=== PATIENT | female | born 1990 | race Two or more races ===

== ENCOUNTER 2016-11-14 16:07 | Observation (INO) | payer BC, OTHER ==
[2016-11-14 16:44] LABS: COLOR PALE YELLOW; LEUKOCYTE ESTERASE,URINE NEGATIVE (NEGATIVE); NITRITE,URINE NEGATIVE (NEGATIVE)
--- NOTE | 2016-11-14 17:10 | EDPHY ---
H & P Stated Complaint: R flank pain and dysuria x 1 day HPI/ROS: HPI CHIEF COMPLAINT: Right flank pain, dysuria HISTORY OF PRESENT ILLNESS: This patient 26-year-old female, significant past medical history for hysterectomy and ureteral surgery on the right, she presents to the emergency room with right CVA pain and dysuria. Patient thinks that she may have a urinary tract infection with a kidney infection. She endorses nausea 1 time last night no fever, she does endorse 1 episode of nonbilious nonbloody vomiting. No diarrhea. She denies abdominal pain specifically denies right lower quadrant pain. She tells me her pain is right-sided stabbing /10. Nonradiating. She denies chest pain or shortness of breath or fever. Past Medical History: Denies significant medical history Past Surgical History: hysterectomy, right ureter repair Social History: Denies use of drugs alcohol tobacco Family History: Noncontributory ROS REVIEW OF SYSTEMS: A comprehensive 10 point review of systems is otherwise negative aside from elements mentioned in the history of present illness. Exam Constitutional triage nursing summary reviewed, vital signs reviewed, awake/ alert. Eyes normal conjunctivae and sclera, EOMI, PERRLA. HENT normal inspection, atraumatic, moist mucus membranes, no epistaxis, neck supple/ no meningismus, no raccoon eyes. Respiratory clear to auscultation bilaterally, normal breath sounds, no respiratory distress, no wheezing. Cardiovascular rate normal, regular rhythm, no murmur, no edema, distal pulses normal. Gastrointestinal soft, non-tender, no rebound, no guarding, normal bowel sounds, no distension, no pulsatile mass. Genitourinary tender palpation right CVA, abdomen soft Musculoskeletal no midline vertebral tenderness, full range of motion, no calf swelling, no tenderness of extremities, no meningismus, good pulses, neurovascularly intact. Skin pink, warm, & dry, no rash, skin atraumatic. Neurologic awake, alert and oriented x 3, AAOx3, moves all 4 extremities equally, motor intact, sensory intact, CN II-XII intact, normal cerebellar, normal vision, normal speech. Psychiatric normal mood/affect. Heme/Lymph/Immune no lymphadenopathy. Differential Diagnosis: includes but is not limited to in a particular, UTI, pyelonephritis, kidney stone, hydroureter, hydronephrosis, perinephric abscess Medical Decision Making: this patient had an IV established obtain blood work, urinalysis, patient had a CT scan abdomen pelvis without IV contrast evaluate for sharp stabbing right flank pain possible kidney stone. She will be hydrated normal saline, IV Dilaudid for pain control. Zofran for nausea. Re-evaluation: CT scan of the abdomen and pelvis without IV contrast for right flank pain . The results of the study are negative for anything acute The study was read by Dr. Hester. I viewed the images myself on the PACS system. 1755: re-evaluation at this time patient does have right upper quadrant pain that radiates directly to her right back on her CT scan it was noted that her gall bladder is full of gallstones. She did have nausea with 1 episode of vomiting while in the emergency room I will Re medicated with nausea medicine she will have an ultrasound of her right upper quadrant to rule out acute cholecystitis biliary colic or impacted stone. Ultrasound of the right upper quadrant The results of the study are shows extensive gallstones, the CBD is dilated 5 mm no evidence of acute cholecystitis I discussed the results of this study with the radiologist Dr. Hester 1837: I re-evaluated this patient: At this time she still has right upper quadrant pain. Given that she has ongoing pain with nausea vomiting and a gallbladder full of gallstones I will consult surgery for admission. IV Invanz ordered patient made NPO. 185: spoke with Dr. Stahl with General surgery who plan on admitting this patient and removing her gallbladder. This time patient is hemodynamically stable I have updated her. She agrees for plan. IV Invanz ordered. Patient made NPO. Source: Patient - Personal History LMP (Females 10-55): Hysterectomy Current Tetanus Diphtheria and Acellular Pertussis (TDAP): Yes - Medical/Surgical History Hx Asthma: No Hx Chronic Respiratory Disease: No Hx Diabetes: No Hx Cardiac Disease: No Hx Renal Disease: No Hx Cirrhosis: No Hx Alcoholism: No Hx HIV/AIDS: No Hx Splenectomy or Spleen Trauma: No Other PMH: hyst in march 2015. stent late march or early april 2015 to drain R kidney - Social History Smoking Status: Never smoked Constitutional: Initial Vital Signs Temperature (C) 36.9 C 11/14/16 16:20 Heart Rate 88 11/14/16 16:20 Respiratory Rate 16 11/14/16 16:20 Blood Pressure 126/75 H 02/01/17 16:20 O2 Sat (%) 100 11/14/16 16:20 O2 Delivery Mode Room Air Allergies/Adverse Reactions: No Known Allergies Allergy (Verified 11/14/16 16:30) Home Medications: Medication Instructions Recorded NK [No Known Home Meds] 11/14/16 Medical Decision Making - Data Points Laboratory Results: Laboratory Results 11/14/16 17:04 11/14/16 17:04 11/14/16 11/14/16 17:04 16:35 WBC 8.33 10^3/uL (3.80-9.50) RBC 4.29 10^6/uL (4.18-5.33) Hgb 13.7 g/dL (12.6-16.3) Hct 38.4 % (38.0-47.0) MCV 89.5 fL (81.5-99.8) MCH 31.9 pg (27.9-34.1) MCHC 35.7 g/dL (32.4-36.7) RDW 11.9 % (11.5-15.2) Plt Count 330 10^3/uL (150-400) MPV 8.8 fL (8.7-11.7) Neut % (Auto) 51.1 % (39.3-74.2) Lymph % (Auto) 39.9 % (15.0-45.0) [place] % (Auto) 5.3 % (4.5-13.0) Eos % (Auto) 3.0 % (0.6-7.6) Baso % (Auto) 0.5 % (0.3-1.7) Nucleat RBC Rel Count 0.0 % (0.0-0.2) Absolute Neuts (auto) 4.26 10^3/uL (1.70-6.50) Absolute Lymphs (auto) 3.32 H 10^3/uL (1.00-3.00) Absolute Monos (auto) 0.44 10^3/uL (0.30-0.80) Absolute Eos (auto) 0.25 10^3/uL (0.03-0.40) Absolute Basos (auto) 0.04 10^3/uL (0.02-0.10) Absolute Nucleated RBC 0.00 10^3/uL (0-0.01) Immature Gran % 0.2 % (0.0-1.1) Immature Gran # 0.02 10^3/uL (0.00-0.10) Sodium 140 mEq/L (134-144) Potassium 3.8 mEq/L (3.5-5.2) Chloride 107 mEq/L (97-110) Carbon Dioxide 23 mEq/l (22-31) Anion Gap 10 mEq/L (8-16) BUN 9 mg/dL (7-23) Creatinine 0.5 L mg/dL (0.6-1.0) Estimated GFR > 60 Glucose 95 mg/dL (70-100) Calcium 8.5 mg/dL (8.5-10.4) Total Bilirubin 0.7 mg/dL (0.1-1.4) Conjugated Bilirubin 0.3 mg/dL (0.0-0.5) Unconjugated Bilirubin 0.4 mg/dL (0.0-1.1) AST 60 H IU/L (14-46) ALT 101 H IU/L (9-52) Alkaline Phosphatase 86 IU/L (38-126) Total Protein 7.7 g/dL (6.3-8.2) Albumin 3.9 g/dL (3.5-5.0) Lipase 79.0 IU/L (23-300) Urine Color PALE YELLOW Urine Appearance CLEAR Urine pH 6.0 (5.0-7.5) Ur Specific [place] 1.004 (1.002-1.030) Urine Protein NEGATIVE (NEGATIVE) Urine Ketones NEGATIVE (NEGATIVE) Urine Blood NEGATIVE (NEGATIVE) Urine Nitrate NEGATIVE (NEGATIVE) Urine Bilirubin NEGATIVE (NEGATIVE) Urine Urobilinogen NEGATIVE EU (0.2-1.0) Ur Leukocyte Esterase NEGATIVE (NEGATIVE) Ur Culture Indicated? NOT INDICATED (NI) Urine Glucose NEGATIVE (NEGATIVE) Medications Given: Discontinued Medications Hydromorphone HCl (Dilaudid) 1 mg IVP EDNOW ONE Stop: 11/14/16 17:15 Last Admin: 11/14/16 17:36 Dose: 1 mg Sodium Chloride (Ns) 1,000 mls @ 0 mls/hr IV ONCE ONE PRN Reason: Wide Open Stop: 11/14/16 17:15 Last Admin: 11/14/16 17:37 Dose: 1,000 mls Ondansetron HCl (Zofran) 4 mg IVP EDNOW ONE Stop: 11/14/16 17:15 Last Admin: 11/14/16 17:36 Dose: 4 mg Ondansetron HCl (Zofran) 4 mg IVP EDNOW ONE Stop: 11/14/16 17:56 Last Admin: 11/14/16 18:01 Dose: 4 mg Departure - Departure Disposition: [facility] ([place], [place])s Inpatient Acute Clinical Impression: Gallstones Condition: Fair Referrals: NONE *PRIMARY CARE P,. [Primary Care Provider] - As per Instructions
[2016-11-14] MEDS ORDERED: HYDROmorphONE/DILAUDID 1 MG/ML SYR IVP ONE ×2 (17:14→22:00)
[2016-11-14] MEDS ORDERED: ONDANSETRON 4 MG/2 ML VIAL IVP ONE ×2 (17:14→17:55)
[2016-11-14] MEDS ORDERED: NS 1,000 ML IV ONE (17:14)
[2016-11-14 17:23] LABS: % IMMATURE GRANULYOCYTES 0.2 % (0.0-1.1); ABSOLUTE IMMATURE GRANULOCYTES 0.02 10^3/uL (0.00-0.10); ADD DIFF? NO; ADD MORPH? NO; ADD SCAN? NO; ATYPICAL LYMPHOCYTE FLAG 10 (0-99); FRAGMENT RBC FLAG 0 (0-99); HEMATOCRIT 38.4 % (38.0-47.0); HEMOGLOBIN 13.7 g/dL (12.6-16.3); LEFT SHIFT FLG 0 (0-99); LIPEMIA HEMOLYSIS FLAG 90 (0-99); MEAN CELL HEMOGLOBIN 31.9 pg (27.9-34.1); MEAN CELL HEMOGLOBIN CONCENTR. 35.7 g/dL (32.4-36.7); MEAN CELL VOLUME 89.5 fL (81.5-99.8); MEAN PLATELET VOLUME 8.8 fL (8.7-11.7); PLATELET CLUMPS FLAG 30 (0-99); PLATELET COUNT 330 10^3/uL (150-400); RED BLOOD CELL COUNT 4.29 10^6/uL (4.18-5.33); RED CELL DISTRIBUTION WIDTH 11.9 % (11.5-15.2)
[2016-11-14 17:35] LABS: ALANINE AMINOTRANSFERASE 101 IU/L (9-52); ALBUMIN 3.9 g/dL (3.5-5.0); ALKALINE PHOSPHATASE 86 IU/L (38-126); ANION GAP 10 mEq/L (8-16); ASPARTATE AMINOTRANSFERASE 60 IU/L (14-46); BILIRUBIN,TOTAL 0.7 mg/dL (0.1-1.4); BILIRUBIN-CONJUGATED 0.3 mg/dL (0.0-0.5); BILIRUBIN-UNCONJUGATED 0.4 mg/dL (0.0-1.1); CALCIUM 8.5 mg/dL (8.5-10.4); CARBON DIOXIDE 23 mEq/l (22-31); CHLORIDE 107 mEq/L (97-110); CREATININE 0.5 mg/dL (0.6-1.0); GLOMERULAR FILTRATION RATE > 60; GLUCOSE 95 mg/dL (70-100); POTASSIUM 3.8 mEq/L (3.5-5.2); SODIUM 140 mEq/L (134-144); TOTAL PROTEIN 7.7 g/dL (6.3-8.2)
--- NOTE | 2016-11-14 18:04 | CT ---
CT Abdomen and Pelvis (Without Contrast) at 1740 hours History: Right flank pain. Previous right pyelonephritis. Comparison: CT October 2015. Technique: Spiral images were acquired from the upper abdomen through the pelvis without intravenous or oral contrast which limits the study. Dose reduction techniques were utilized. Findings: Abdomen: Bilateral kidneys demonstrate no nephrolithiasis or hydronephrosis. No pleural effusion. Hep atic steatosis. Cholelithiasis with several gallbladder calculi noted. No pericholecystic fluid. No s plenomegaly. No peripancreatic fluid. No aortic aneurysm. No bowel obstruction. No significant adenop athy. Limited due to lack of intravenous and oral contrast. Pelvis: No evidence of distal ureteral calculi, hydroureter or bladder calculi. Appendix appears nor mal without inflammatory changes. No adnexal masses. No diverticulitis. No significant free fluid. No significant adenopathy. Impression: 1. Cholelithiasis. Recommend ultrasound gallbladder. 2. No nephrolithiasis, hydronephrosis, or perinephric fluid. 3. No appendicitis or bowel obstruction. 4. Hepatic steatosis. Recommendation: Ultrasound abdomen limited. Attention: This CT examination is specifically designed to evaluate patients who are clinically susp ected of having acute obstructive uropathy. This examination does not use radiographic contrast, and as such, provides only a limited evaluation of the abdomen, pelvis and retroperitoneum. If there is further clinical suspicion for pathological conditions other than obstructive uropathy, a complete C T evaluation of the abdomen and pelvis utilizing intravenous, oral, and rectal contrast should be con sidered. Findings and recommendations discussed with Emergency Department physician, Dr. Walker Nance at 17 55 hour, today. Final report concurs with initial preliminary interpretation.
[2016-11-14] MEDS ORDERED: ERTAPENEM 1 GM in NS 100 ML IV ONE (18:42)
--- NOTE | 2016-11-14 18:43 | US ---
Ultrasound of the Abdomen Limited History: Right Abdominal pain. Comparison: None. Findings: Gallbladder: Gallbladder is completely opacified with multiple gallstones. Gallbladder wall not well visualized. Common bile duct is 5 mm in diameter which is borderline. Liver: Diffusely increased in echogenicity without definite focal solid lesions and measures 17 cm in length. Main portal vein is patent. Renal: Right kidney measures 10 x 5 x 6 cm without hydronephrosis. Pancreas: Partially obscured by bowel gas. Aorta: Visualized upper abdominal aorta demonstrates no an eurysm. Impression: 1. Cholelithiasis with gallbladder completely opacified with gallstones. 2. Borderline common bile duct is 5 mm. 3. Hepatomegaly and hepatic steatosis. Findings and recommendations discussed with Emergency Department physician, Dr. Walker Nance at 18 30 hour, today. Final report concurs with initial preliminary interpretation.
--- NOTE | 2016-11-14 20:55 | GHP ---
[f rep st] PREOP HISTORY AND PHYSICAL Amended report HPI: A 26-year-old female who is admitted at this time with right upper quadrant pain of 2 days duration, associated with nausea, mild amount of diarrhea, pain penetrating into her back. Ultrasound and CT scan revealed multiple gallstones. Her LFTs were slightly elevated. She is admitted at this time for laparoscopic cholecystectomy. She did eat a small amount of noodles earlier this afternoon, but has vomited since. She has had pain now for 2 days. PAST MEDICAL HISTORY: Past history is complicated with multiple problems. She has had a hysterectomy which was complicated by a ureter injury which was treated with laparoscopic repair. She has asthma for which she takes inhalers. She denies any cardiac issues. ALLERGIES: None. MEDICATIONS: None. REVIEW OF SYSTEMS: Otherwise negative on full review of systems. PHYSICAL EXAMINATION: GENERAL: Reveals an alert 26-year-old female, in no acute distress. HEAD/NECK: Exam is benign without icterus. CHEST: Clear. CARDIAC: Regular rhythm. ABDOMEN: Soft. She is slightly distended and she is tender in the right upper quadrant. There are no hernias. EXTREMITIES: Benign. Full pulses. IMPRESSION: Acute cholecystitis and cholelithiasis. PLAN: Laparoscopic cholecystectomy. Again, the risks and options have been fully discussed, and she wishes to proceed. DISPOSITION: Admit for laparoscopic cholecystectomy. /[id number]/MODL Add acc#, 11/15/16, tom ESCOBAR
[2016-11-14] MEDS ORDERED: HYDROmorphONE/DILAUDID 1 MG/ML SYR ONE (21:45)
[2016-11-14] MEDS ORDERED: BUPIVACAINE 0.5% 30 ML SDV ONE (22:32)
[2016-11-14] MEDS ORDERED: fentaNYL 250 MCG/5 ML INJ ONE (22:33)
[2016-11-14] MEDS ORDERED: PROPOFOL/EMULSION 500 MG/50 ML BOTTLE IV ONE (22:33)
[2016-11-14] MEDS ORDERED: HYDROmorphONE/DILAUDID 1 MG/ML SYR IVP PRN (22:36)
--- NOTE | 2016-11-14 22:39 | POSTOPPROG ---
[id number] 4d daliwhal Anesthesia: GET(General Endotracheal) Pre-op Diagnosis: acute cholecystitis Post-op Diagnosis: same Indication: pain Procedure: lap phillip Findings: large solid stone filling gb Inf/Abcess present in the surg proc area at time of surgery?: Yes Depth: Organ Space EBL: Minimal Complications: 0 Specimen(s): gallbladder
[2016-11-14] MEDS ORDERED: D5W 1/2 NS W/ 20 KCl/L 1,000 ML IV SCH (22:45)
[2016-11-15] MEDS ORDERED: SUGAMMADEX SODIUM 200 MG/2 ML VIAL IVP ONE (00:19)
[2016-11-15] MEDS ORDERED: fentaNYL 100 MCG/2 ML INJ ONE (01:16)
[2016-11-15] MEDS: OXYCODONE/APAP 5/325 TAB PO PRN ×3 (02:56→16:43)
[2016-11-15 04:56] LABS: % IMMATURE GRANULYOCYTES 0.5 % (0.0-1.1); ABSOLUTE IMMATURE GRANULOCYTES 0.07 10^3/uL (0.00-0.10); ADD DIFF? NO; ADD MORPH? NO; ADD SCAN? NO; ATYPICAL LYMPHOCYTE FLAG 0 (0-99); FRAGMENT RBC FLAG 0 (0-99); HEMATOCRIT 39.2 % (38.0-47.0); HEMOGLOBIN 13.8 g/dL (12.6-16.3); LEFT SHIFT FLG 0 (0-99); LIPEMIA HEMOLYSIS FLAG 90 (0-99); MEAN CELL HEMOGLOBIN 31.7 pg (27.9-34.1); MEAN CELL HEMOGLOBIN CONCENTR. 35.2 g/dL (32.4-36.7); MEAN CELL VOLUME 89.9 fL (81.5-99.8); PLATELET CLUMPS FLAG 0 (0-99); PLATELET COUNT 338 10^3/uL (150-400); RED BLOOD CELL COUNT 4.36 10^6/uL (4.18-5.33); RED CELL DISTRIBUTION WIDTH 11.9 % (11.5-15.2)
[2016-11-15 05:16] LABS: ALBUMIN 3.9 g/dL (3.5-5.0); BILIRUBIN,TOTAL 0.8 mg/dL (0.1-1.4); BILIRUBIN-CONJUGATED 0.3 mg/dL (0.0-0.5); BILIRUBIN-UNCONJUGATED 0.5 mg/dL (0.0-1.1); TOTAL PROTEIN 7.6 g/dL (6.3-8.2)
[2016-11-15] MEDS: KETOROLAC 15 MG/1 ML SDV IVP SCH ×4 (06:01→23:49)
[2016-11-15] MEDS: ERTAPENEM 1 GM in NS 100 ML IV SCH (08:31)
[2016-11-15] MEDS: ONDANSETRON 4 MG/2 ML VIAL IVP PRN ×2 (08:34→14:09)
--- NOTE | 2016-11-15 10:29 | SOAPPROG ---
SOAP Progress Note Assessment/Plan: Assessment: 26yo female s/p lap phillip tolerating clears, has not ambulated yet, pain well controlled PE no jaundice, comfortable alert Abdomen incisions clean/dry, soft to palpation Plan: advance diet, possible d/c later today, script for pain med placed in chart. D/ C plan filled out discussed f/u, wound care with pt and significant other. 11/15/16 10:27 Objective: Vital Signs Temp Pulse Resp BP Pulse Ox 36.6 C 92 16 122/79 H 99 11/15/16 08:00 11/15/16 08:00 11/15/16 08:00 11/15/16 08:00 11/15/16 08:00 Laboratory Results 11/15/16 04:44 11/14/16 11/15/16 11/16/16 05:59 05:59 05:59 Intake Total 2700 Output Total 2550 Balance 150 ICD10 Worksheet Patient Problems: Problems Problem Status Diagnosed Gallstones Acute Acute pyelonephritis Acute Right ureteral injury Acute Urinary tract infection Acute
--- NOTE | 2016-11-15 13:37 | GDS ---
[f rep st] DISCHARGE SUMMARY REASON FOR ADMISSION: Cholecystitis. OTHER PERTINENT DIAGNOSES: Asthma. HOSPITAL COURSE: The patient is a pleasant 26-year-old female, who came to the emergency department complaining of abdominal pain. She had an ultrasound and a CT scan which revealed multiple gallstone s. She underwent a laparoscopic cholecystectomy with Dr. Stahl late in the evening on 11/14/2016. S he is currently tolerating a regular diet, ambulating well, and will likely be discharged later today . A prescription for Percocet was given to the patient, Percocet 5/325, #10. It is okay for the patien t to shower over her Steri-Strips. No heavy lifting for 6 weeks. I discussed these recommendations with the patient and put them in written form in the discharge plan. I also discussed with the patient her elevated liver function tests, and we may want to recheck those at her followup visit in approximately 10 days in the office. While her bilirubin was normal, her A ST is 178, and her ALT is 192 on discharge. /[id number]/MODL
[2016-11-15 23:50] VITALS: TEMP 98.4
[2016-11-16] MEDS: KETOROLAC 15 MG/1 ML SDV IVP SCH (05:41)
[2016-11-16] MEDS: ERTAPENEM 1 GM in NS 100 ML IV SCH (08:00)
[2016-11-16 08:12] VITALS: BP 109/64; PULSE 81; RESP 18; O2SAT 96
== END 2016-11-16 12:18 | disposition home or self-care (01) ==
LOC: INTOOBSV 18:55 → F3E 20:34
PROVIDERS: ADMIT Surgery; ATTEND Surgery
PROC: 0FT44ZZ Resection of Gallbladder, Percutaneous Endoscopic Approach (ICD-10-PCS; principal; 2016-11-14 22:30)
DX: K80.10 Calculus of gallbladder with chronic cholecystitis without obstruction (principal); J45.909 Unspecified asthma, uncomplicated
CPT/HCPCS: 47562; 74176; 76705; 96361; 96365; 96375; 96376; 99285; G0378; J1170; J1335; J1885; J2405; J2704; J3010

== ENCOUNTER 2017-02-17 17:46 | Emergency (ER) | payer OTHER ==
[2017-02-17 17:51] VITALS: RESP 18
--- NOTE | 2017-02-17 18:18 | EDPHY ---
H & P Stated Complaint: dysuria and constipation Time Seen by Provider: 02/17/17 18:07 HPI/ROS: CHIEF COMPLAINT: Right flank pain dysuria HISTORY OF PRESENT ILLNESS: This is a 26-year-old female presenting to the emergency department complaining of right flank pain, right upper quadrant with intermittent dysuria onset yesterday. Patient has been able to tolerate p.o. intake no changes in activity. Patient was concerned because she has had previous surgery on her right ureter due to complications hysterectomy 1 year ago, and cholecystectomy. Denies any nausea vomiting fever chills. REVIEW OF SYSTEMS: Constitutional: No fever, no chills. Eyes: No discharge. ENT: No sore throat. Cardiovascular: No chest pain, no palpitations. Respiratory: No cough, no shortness of breath. Gastrointestinal: The right upper quadrant, suprapubic abdominal pain, no vomiting. Genitourinary: Dysuria Musculoskeletal: Right flank pain Skin: No rashes. Neurological: No headache. Source: Patient, Family - Personal History LMP (Females 10-55): Hysterectomy Current Tetanus/Diphtheria Vaccine: Yes - Medical/Surgical History Hx Asthma: No Hx Chronic Respiratory Disease: No Hx Diabetes: No Hx Cardiac Disease: No Hx Renal Disease: No Hx Cirrhosis: No Hx Alcoholism: No Hx HIV/AIDS: No Hx Splenectomy or Spleen Trauma: No Other PMH: hyst in march 2015. stent late march or early april 2015 to drain R kidney cholesectomy - Social History Smoking Status: Never smoked - Physical Exam Exam: General Appearance: Alert, no distress. Eyes: Pupils equal and round no pallor or injection. ENT, Mouth: Mucous membranes moist. Respiratory: There are no retractions, lungs are clear to auscultation. Cardiovascular: Regular rate and rhythm. Gastrointestinal: Abdomen is soft, nondistended, right upper quadrant and suprapubic tenderness on palpation, no masses, bowel sounds normal. Neurological: No focal deficits Skin: Warm and dry, no rashes. Musculoskeletal: Neck is supple nontender. right CVA tenderness on palpation Extremities: symmetrical, full range of motion. Psychiatric: Patient is oriented X 3, there is no agitation. Constitutional: Initial Vital Signs Temperature (C) 37.0 C 02/17/17 17:49 Heart Rate 98 02/17/17 17:49 Respiratory Rate 18 02/17/17 17:49 Blood Pressure 117/75 02/17/17 17:49 O2 Sat (%) 98 02/17/17 17:49 O2 Delivery Mode Room Air Allergies/Adverse Reactions: No Known Allergies Allergy (Verified 11/14/16 16:30) Medical Decision Making - Diagnostics Imaging Results: Imaging Impressions Abdomen/Pelvis Ultrasound 02/17/17 18:53 Impression: 1. Normal-appearing kidneys. No hydronephrosis. 2. Only a left-sided ureteral jet was identified during observation of the bladder with color flow imaging. Apparently, the right distal ureter was reimplanted in a different location on the bladder. Findings discussed with Lisa Schultz NP at 19:54 hour, 02/17/2017. Abdomen Ultrasound 02/17/17 20:10 Impression: 1. No evidence of choledocholithiasis. 2. Moderate hepatic steatosis. Findings discussed with Lisa Schultz NP at 20:43 hour, 02/17/2017. ED Course/Re-evaluation: Discussed the plan of care: CBC, BMP, UA. Reviewed old records. Renal ultrasound 1929: Discussed with Dr. Nielson recommending ultrasound for right upper quadrant to rule out any retained stone in the common bile duct. 2043: Spoke with Dr. Nielson no retained stones noted in the common bile duct, no hydronephrosis and kidneys. 2049: Discussed all results with patient and family. She does report feeling better, relief with Toradol. Recommended following up with her primary care provider this week. If at any point time symptoms worsen nausea vomiting abdominal pain fever chills return to the emergency department. Patient agreed with plan Differential Diagnosis: Other differential diagnosis considered but not limited to retained gallstone in common bile duct, renal colic, UTI, pyelonephritis and nephrolithiasis - Data Points Laboratory Results: Laboratory Results 02/17/17 18:10 02/17/17 18:10 02/17/17 02/17/17 02/17/17 18:10 18:10 18:10 WBC 11.28 10^3/uL H 10^3/uL (3.80-9.50) RBC 4.41 10^6/uL 10^6/uL (4.18-5.33) Hgb 13.2 g/dL g/dL (12.6-16.3) Hct 39.9 % % (38.0-47.0) MCV 90.5 fL fL (81.5-99.8) MCH 29.9 pg pg (27.9-34.1) MCHC 33.1 g/dL g/dL (32.4-36.7) RDW 12.1 % % (11.5-15.2) Plt Count 329 10^3/uL 10^3/uL (150-400) MPV 9.0 fL fL (8.7-11.7) Neut % (Auto) 63.1 % % (39.3-74.2) Lymph % (Auto) 29.3 % % (15.0-45.0) [place] % (Auto) 4.6 % % (4.5-13.0) Eos % (Auto) 2.2 % % (0.6-7.6) Baso % (Auto) 0.4 % % (0.3-1.7) Nucleat RBC Rel Count 0.0 % % (0.0-0.2) Absolute Neuts (auto) 7.12 10^3/uL H 10^3/uL (1.70-6.50) Absolute Lymphs (auto) 3.30 10^3/uL H 10^3/uL (1.00-3.00) Absolute Monos (auto) 0.52 10^3/uL 10^3/uL (0.30-0.80) Absolute Eos (auto) 0.25 10^3/uL 10^3/uL (0.03-0.40) Absolute Basos (auto) 0.05 10^3/uL 10^3/uL (0.02-0.10) Absolute Nucleated RBC 0.00 10^3/uL 10^3/uL (0-0.01) Immature Gran % 0.4 % % (0.0-1.1) Immature Gran # 0.04 10^3/uL 10^3/uL (0.00-0.10) Sodium 140 mEq/L mEq/L (134-144) Potassium 3.9 mEq/L mEq/L (3.5-5.2) Chloride 105 mEq/L mEq/L (97-110) Carbon Dioxide 25 mEq/l mEq/l (22-31) Anion Gap 10 mEq/L mEq/L (8-16) BUN 11 mg/dL mg/dL (7-23) Creatinine 0.9 mg/dL mg/dL (0.6-1.0) Estimated GFR > 60 Glucose 92 mg/dL mg/dL (70-100) Calcium 8.9 mg/dL mg/dL (8.5-10.4) Urine Color YELLOW Urine Appearance HAZY Urine pH 7.0 (5.0-7.5) Ur Specific [place] 1.027 (1.002-1.030) Urine Protein NEGATIVE (NEGATIVE) Urine Ketones NEGATIVE (NEGATIVE) Urine Blood NEGATIVE (NEGATIVE) Urine Nitrate NEGATIVE (NEGATIVE) Urine Bilirubin NEGATIVE (NEGATIVE) Urine Urobilinogen NEGATIVE EU EU (0.2-1.0) Ur Leukocyte Esterase NEGATIVE (NEGATIVE) Urine Glucose NEGATIVE (NEGATIVE) Medications Given: Discontinued Medications Ketorolac Tromethamine (Toradol) 30 mg IVP EDNOW ONE Stop: 02/17/17 18:27 Last Admin: 02/17/17 18:37 Dose: 30 mg Departure - Departure Disposition: Home, Routine, Self-Care Clinical Impression: Renal colic on right side Condition: Good Instructions: Oxycodone/Acetaminophen (By mouth), Abdominal Pain (ED), Flank Pain (ED) Additional Instructions: Discussed discharge instructions 1. Discussed ultrasound and lab results all negative. No retained gallstone in the common bile duct, no swelling of the kidneys 2. rest, decrease any strenuous activity or heavy lifting 3. you can take any ibuprofen or Tylenol as needed 4. If at any point time symptoms worsen, such as: Nausea vomiting fever, bloody urine increased back pain abdominal pain return emergency department 5. I have given you number for [facility] and [facility] Medicine follow-up with 1 of those clinics within the next week Referrals: NONE *PRIMARY CARE P,. [Primary Care Provider] - As per Instructions [facility],. [Clinic] - As per Instructions Rony Garay, [Medical Doctor] - As per Instructions
[2017-02-17 18:26] LABS: % IMMATURE GRANULYOCYTES 0.4 % (0.0-1.1); ABSOLUTE IMMATURE GRANULOCYTES 0.04 10^3/uL (0.00-0.10); ADD DIFF? NO; ADD MORPH? NO; ADD SCAN? NO; ATYPICAL LYMPHOCYTE FLAG 10 (0-99); FRAGMENT RBC FLAG 0 (0-99); HEMATOCRIT 39.9 % (38.0-47.0); HEMOGLOBIN 13.2 g/dL (12.6-16.3); LEFT SHIFT FLG 0 (0-99); LIPEMIA HEMOLYSIS FLAG 80 (0-99); MEAN CELL HEMOGLOBIN 29.9 pg (27.9-34.1); MEAN CELL HEMOGLOBIN CONCENTR. 33.1 g/dL (32.4-36.7); MEAN CELL VOLUME 90.5 fL (81.5-99.8); PLATELET CLUMPS FLAG 0 (0-99); PLATELET COUNT 329 10^3/uL (150-400); RED BLOOD CELL COUNT 4.41 10^6/uL (4.18-5.33); RED CELL DISTRIBUTION WIDTH 12.1 % (11.5-15.2)
[2017-02-17] MEDS ORDERED: KETOROLAC 30 MG/1 ML SDV IVP ONE (18:26)
[2017-02-17 18:33] LABS: COLOR YELLOW; LEUKOCYTE ESTERASE,URINE NEGATIVE (NEGATIVE); NITRITE,URINE NEGATIVE (NEGATIVE)
[2017-02-17 18:35] LABS: ANION GAP 10 mEq/L (8-16); CALCIUM 8.9 mg/dL (8.5-10.4); CARBON DIOXIDE 25 mEq/l (22-31); CHLORIDE 105 mEq/L (97-110); CREATININE 0.9 mg/dL (0.6-1.0); GLOMERULAR FILTRATION RATE > 60; GLUCOSE 92 mg/dL (70-100); POTASSIUM 3.9 mEq/L (3.5-5.2); SODIUM 140 mEq/L (134-144)
[2017-02-17] MEDS ORDERED: OXYCODONE/APAP 5/325MG PREPACK#4 BTL TAKEHOME ONE (20:50)
[2017-02-17 21:14] VITALS: BP 113/73; PULSE 77; TEMP 98.2; O2SAT 96
== END 2017-02-17 21:13 | disposition home or self-care (01) ==
DX: N23 Unspecified renal colic (principal); Z90.710 Acquired absence of both cervix and uterus
CPT/HCPCS: 96374; J1885